=== PATIENT | female | born 1960 | race Caucasian/White ===

== ENCOUNTER 2025-06-24 00:29 | Emergency (ER) | payer OTHER ==
[~2025-06-24] VITALS: Ht 152.4 cm; Wt 75.0 kg
[2025-06-24 00:34] VITALS: TEMP 36.4; O2SAT 94
[2025-06-24] MEDS ORDERED: MORPHINE SULFATE 4 MG/ML INJ (FOR IV/IM USE) IV ONE (01:00)
[2025-06-24] MEDS: MORPHINE SULFATE 4 MG/ML INJ (FOR IV/IM USE) IV NR (01:11)
[2025-06-24] MEDS: SODIUM CHLORIDE 0.9% 1,000 ML IV ONE ×2 (01:11→05:39)
[2025-06-24] MEDS: ONDANSETRON HCL 4MG/2ML INJ IV NR (01:11)
[2025-06-24] MEDS: ONDANSETRON HCL 4MG/2ML INJ IV ONE (01:11)
[2025-06-24] MEDS: TETANUS, DIPHTHERIA, PERTUSSIS VAC/PF 0.5ML (>10YR OLD) IM ONE (01:15)
[2025-06-24] MEDS: LIDOCAINE HCL/EPINEPHRINE 1%-EPI 1:100,000 20ML VIAL INFIL ONE (01:19)
[2025-06-24] MEDS: LIDOCAINE HCL/EPINEPHRINE 1%-EPI 1:100,000 20ML VIAL INFIL NR (01:30)
[2025-06-24 01:31] LABS: BASOPHILS % 0.3 % (0.0-2.0); EOSINOPHILS % 1.1 % (0.0-5.0); HEMATOCRIT. 37.0 % (36.0-48.0); HEMOGLOBIN. 12.4 g/dL (12.0-16.0); LYMPHOCYTES % 16.8 % (20.0-50.0); MEAN PLATELET VOLUME 7.1 fl (7.4-10.4); MONOCYTES % 6.1 % (2.0-8.0); NEUTROPHILS % 75.7 % (40.0-76.0); PLATELET 288 x1000/uL (130-400); RED BLOOD CELL COUNT 4.14 mill/uL (4.2-5.4); RED CELL DISTRIBUTION WIDTH 14.1 % (11.6-14.6)
[2025-06-24 01:45] LABS: CREATININE 0.5 mg/dL (0.6-1.0); UREA NITROGEN BLOOD 13 mg/dL (9-23)
[2025-06-24] MEDS: CEFAZOLIN 1000MG PREMIX 50 ML IV ONE (02:33)
[2025-06-24 06:37] VITALS: BP 123/69; PULSE 78; RESP 18; O2SAT 95
== END 2025-06-24 06:41 | disposition short-term general hospital (02) ==
LOC: ER 00:36 → EDBEDREQTM 04:59 → EDBEDREQ 04:59 → ER 06:41 → CMPBEDREQ 07:45
DX: S01.81XA Laceration without foreign body of other part of head, initial encounter (principal); S06.0XAA Concussion with loss of consciousness status unknown, initial encounter; E78.00 Pure hypercholesterolemia, unspecified; I10 Essential (primary) hypertension
CPT/HCPCS: 80048; 85014; 85018; 85025; 86850; 86900; 86901; 36415; 71045; 70450; 70486; 72125; 90715; 93005; 13121; 13122; 90471; 96361; 96365; 96375; 99285; J0690; J2004; J2405; J2270; J7030; Z7610 ×4; 13133; A4606